=== PATIENT | male | born 1940 | race Caucasian/White ===

== ENCOUNTER → 2016-06-05 | Outpatient (REF) | payer OTHER | LOC: M LAB REF 12:46 | PROVIDERS: ATTEND Internal Medicine Medical Oncology | DX: C61 Malignant neoplasm of prostate (principal) ==

== ENCOUNTER 2016-07-03 14:44 | Day surgery (SDC) | payer MEDICARE, OTHER ==
[~2016-07-03] VITALS: Ht 170.2 cm; Wt 109.4 kg
[~2016-07-03 14:44] MED LIST: CALC500T49 PO; CASO1TAB PO; CYAN1000VL IM; FOLI1TAB2 PO; LEUP375KIT IM
[2016-07-03] MEDS ORDERED: LR 1,000 ML IV ONE (15:30)
[2016-07-03] MEDS ORDERED: LR 1,000 ML IV SCH ×2 (15:30→23:45)
[2016-07-03] MEDS ORDERED: BICALUTAMIDE 50 MG TAB PO SCH (21:00)
[2016-07-03] MEDS ORDERED: BUPIVACAINE HCL 0.25% 30 ML VIAL As Ordered ONE (21:07)
[2016-07-03] MEDS ORDERED: BUPIVACAINE LIPOSOME/PF 1.3% 20 ML VIAL (13.3MG/ML)(EXPAREL) As Ordered ONE (21:07)
[2016-07-03] MEDS ORDERED: MIDAZOLAM INJ 2 MG/2 ML VIAL (J2250) As Ordered ONE (21:40)
[2016-07-03] MEDS ORDERED: PHENYLephrine HCL 500 MCG/5 ML (100MCG/ML) SYRINGE (J2370) As Ordered ONE (21:40)
[2016-07-03] MEDS ORDERED: fentaNYL 250 MCG/5 ML INJECTION (J3010) As Ordered ONE (21:40)
[2016-07-03] MEDS ORDERED: ONDANSETRON 4MG/2ML VIAL (J2405) As Ordered ONE (21:41)
[2016-07-03] MEDS ORDERED: PROPOFOL 200 MG/20 ML VIAL As Ordered ONE (21:41)
[2016-07-03] MEDS ORDERED: ROCURONIUM BROMIDE 50 MG/5 ML VIAL As Ordered ONE ×2 (21:41→22:21)
[2016-07-03] MEDS ORDERED: METOCLOPRAMIDE INJ 10MG/2ML VIAL (J2765) As Ordered ONE (21:41)
[2016-07-03] MEDS ORDERED: LIDOCAINE 2% INJ 100 MG/5 ML SDV (FOR ANES.) As Ordered ONE (21:41)
[2016-07-03] MEDS ORDERED: diphenhydrAMINE INJ 50MG/ML VIAL (J1200) As Ordered ONE (21:41)
[2016-07-03] MEDS ORDERED: GLYCOPYRROLATE INJ 0.2 MG/ML 2 ML VIAL As Ordered ONE (21:42)
[2016-07-03] MEDS ORDERED: NEOSTIGMINE 1MG/ML 5 ML SYRINGE (J2710) As Ordered ONE (21:42)
[2016-07-03] MEDS ORDERED: ePHEDrine SULFATE 25 MG/5 ML(5MG/ML) SYRINGE As Ordered ONE ×2 (21:48→22:07)
[2016-07-03] MEDS ORDERED: DESFLURANE 240 ML INHALANT As Ordered ONE (21:56)
[2016-07-03] MEDS ORDERED: PERCOCET 5MG/325MG TAB PO PRN (23:45)
[2016-07-03] MEDS ORDERED: METOCLOPRAMIDE INJ 10MG/2ML VIAL (J2765) IV PRN (23:45)
[2016-07-03] MEDS ORDERED: fentaNYL 100 MCG/2 ML INJECTION (J3010) IV PRN (23:45)
[2016-07-03] MEDS ORDERED: ONDANSETRON 4MG/2ML VIAL (J2405) IV PRN (23:45)
[2016-07-03] MEDS ORDERED: MEPERIDINE INJ 25 MG/ML VIAL (J2175) IV PRN (23:45)
[2016-07-04] VITALS (9 sets, daily range): BP systolic 106–141; BP diastolic 55–75
[2016-07-04] MEDS ORDERED: LR 1,000 ML IV SCH (00:30)
[2016-07-04] MEDS ORDERED: NORCO, ANEXSIA 5/325MG TABLET (HYDROcodone/ACETAMINOPHEN) PO PRN ×2 (00:30)
[2016-07-04] MEDS ORDERED: ACETAMINOPHEN TAB 650MG DOSE (2X325MG) PO PRN (00:30)
[2016-07-04] MEDS ORDERED: FOLIC ACID 1 MG TAB PO SCH (09:00)
[2016-07-04] MEDS ORDERED: NORC1TAB4 PO (17:06)
[2016-07-04] MEDS ORDERED: TYLE325C PO (17:06)
--- NOTE | 2016-07-05 18:04 | ECGEPIP ---
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
--- NOTE | 2016-07-06 15:15 | RO ---
DATE OF PROCEDURE: 07/03/2016 PREOPERATIVE DIAGNOSIS: Umbilical hernia. POSTOPERATIVE DIAGNOSIS: Umbilical hernia. PROCEDURE PERFORMED: Umbilical herniorrhaphy with Ultra Pro mesh. SURGEON: Dr. Powers PRIEST: Terry Husain MS III ANESTHESIA: General. INDICATIONS FOR PROCEDURE: The patient is a 75-year-old man who had noticed a small bulge just above the umbilicus. He is now for umbilical herniorrhaphy. OPERATIVE PROCEDURE: The patient was placed under general endotracheal anesthesia. The patient's abdomen was prepped and draped in a sterile fashion. 0.25% Marcaine was infiltrated across the upper aspect of the umbilicus. A transverse, roughly 3.5 cm skin incision was made just above the umbilical dimple. The incision was deepened into the subcutaneous tissues. A protrusion of fibrofatty tissue from the fascia was identified just to the left of the midpoint of the incision. Dissection was carried out down to the fascia. The hernia appeared to have been somewhat bilobed with the lower portion having been reduced at the start of the operation and this larger protrusion of fibrofatty tissue remaining incarcerated. This was transected just above the fascia and hemostasis was ensured and this was then reduced into the abdomen. When the two defects were combined, there was an approximately 2 cm round defect with slightly thinned fascial margins superiorly and inferiorly. Laterally, the fascia appeared more robust. I closed the peritoneum with a running suture of chromic. The preperitoneal fat and peritoneum were then peeled away from the overlying fascia surrounding the incision for several centimeters in all directions. I elected to place a small piece of mesh subfascially through the hernia defect to reinforce the closure of the fascial defect. A piece of Ultra Pro mesh was selected and a piece of mesh approximately 3.5 x 5 cm was cut. This was placed subfascially after four corner tacking sutures of #2-0 Ethibond were placed. These were tied holding the mesh splayed beneath the fascial defect. Two lateral sutures of Vicryl were placed to tack the lateral aspects of the mesh in place. The fascial defect was then closed transversely with interrupted simple sutures of #0 Ethibond. Some 0.25% Marcaine was infiltrated about the repair. The umbilical skin was tacked down to the fascia with a single suture of #3-0 Vicryl. The skin edges were then approximated with buried Vicryl and closed with a running suture of #4-0 Vicryl and Steri-Strips. The umbilicus was filled with a fluffed 2 x 2 and covered with a 4 x 4. The patient tolerated the procedure well without apparent complication. He was awakened in the operating room, extubated and moved to the recovery room in stable condition.
== END 2016-07-04 17:19 | disposition home or self-care (01) ==
LOC: M SDC 14:44 → M MSPAV 07-04 00:19 → M SDC 07-04 17:19
PROVIDERS: ATTEND Surgery
DX: K42.9 Umbilical hernia without obstruction or gangrene (principal); C61 Malignant neoplasm of prostate; Z77.098 Contact with and (suspected) exposure to other hazardous, chiefly nonmedicinal, chemicals; Z79.899 Other long term (current) drug therapy; Z92.21 Personal history of antineoplastic chemotherapy; Z92.3 Personal history of irradiation
CPT/HCPCS: 49585; 88302; 93005; C1781; J1200; J2250; J2370; J2405; J2710; J2765; J3010

== ENCOUNTER → 2016-09-25 | Outpatient (REF) | payer OTHER ==
[~2016-09-25] MED LIST changes: -FOLI1TAB2 PO; +FOLI1TAB4 PO; +NORC1TAB4 PO; +TYLE325C PO
[2016-09-25 14:41] LABS: VITAMIN B12 LEVEL 376 PG/ML (247-911)
== END ==
LOC: M LAB REF 13:50
PROVIDERS: ATTEND Internal Medicine Medical Oncology
DX: C61 Malignant neoplasm of prostate (principal)

== ENCOUNTER → 2017-01-29 | Outpatient (REF) | payer OTHER ==
[2017-01-29 13:36] LABS: VITAMIN B12 LEVEL 609 PG/ML (247-911)
== END ==
LOC: M LAB REF 12:48
PROVIDERS: ATTEND Internal Medicine Medical Oncology
DX: C61 Malignant neoplasm of prostate (principal)

== ENCOUNTER → 2017-06-19 | Outpatient (CLI) | payer OTHER | LOC: M WUC 10:10 | DX: R10.31 Right lower quadrant pain (principal) ==

== ENCOUNTER → 2017-09-25 | Outpatient (REF) | payer OTHER ==
[2017-09-25 13:55] LABS: PROSTATIC SPECIFIC AG MONITOR < 0.01 NG/ML (< 4.0)
[2017-09-25 14:37] LABS: VITAMIN B12 LEVEL 620 PG/ML (247-911)
== END ==
LOC: M LAB REF 13:13
DX: C61 Malignant neoplasm of prostate (principal); Z79.818 Long term (current) use of other agents affecting estrogen receptors and estrogen levels

== ENCOUNTER → 2018-10-07 | Outpatient (CLI) | payer OTHER ==
[~2018-10-07] MED LIST changes: +CALC1TAB82 PO; -CASO1TAB PO; +CASO50TA5 PO; +FOLI1TAB11 PO; -FOLI1TAB4 PO; +MOTR200T44 PO; -NORC1TAB4 PO; +NORC1TAB7 PO
--- NOTE | 2018-10-07 15:27 | REP ---
WHOLE BODY BONE SCAN: Following the intravenous administration of 21.7 millicuries technetium 99m MDP, patient's whole body is imaged in the anterior and posterior projections. Additional oblique and lateral views are also obtained. There is a focus of increased uptake in the posterolateral right 9th rib and another focus of increased uptake in the adjacent posterolateral right 10th rib. Differential diagnosis is to include rib fractures or metastatic lesions. There is intense increased uptake in the region of the left hip joint. This could represent arthritic uptake. However, underlying bone lesion cannot be completely excluded. Symmetrical periarticular uptake in the shoulders is compatible with arthritic uptake. There is arthritic uptake in the left talocalcaneal joint and right patellofemoral joint. Mild facet arthritic uptake is seen in the lumbar spine region and there also appears to be mild arthritic uptake in the sacroiliac joints. Renal and bladder activity are seen. IMPRESSION: There is a focus of increased uptake in the posterolateral right 9th rib and adjacent 10th rib. This could represent two adjacent rib fractures but metastatic lesions could not totally be excluded. There is intense increased uptake in the region of the left hip joint, which may represent significant arthritic uptake. However, underlying bone lesion cannot be excluded. Evaluation of the right rib foci and left hip focus would likely best be made with CT scan of these areas. Otherwise, there is no compelling scintigraphic evidence of osseous metastases elsewhere in the axial or appendicular skeleton. Electronically Signed by Renzo Mayer MD 10/08/2018 10:52 A
== END ==
LOC: M RAD 09:24
PROVIDERS: ATTEND Nurse Practitioner Family
DX: C61 Malignant neoplasm of prostate (principal)
CPT/HCPCS: 78306; A9503

== ENCOUNTER → 2018-10-21 | Outpatient (CLI) | payer MEDICARE, OTHER ==
--- NOTE | 2018-10-29 11:11 | DEXA ---
AP SPINE L1 - L4 1.152 -0.3 0.0 LT FEMUR TOTAL 0.857 -1.2 -0.7 LT NECK 0.839 -1.4 -0.3 RT FEMUR TOTAL 0.835 -1.4 -0.8 RT NECK 0.712 -2.3 -1.3 TOTAL BODY TOTAL OTHER COMMENTS: Normal bone densitometry of the spine. There is low bone density of the hips. The increased density of the spine does represent a significant change. The decreased density of the left hip does represent a significant change. The decreased density of the right hip does represent a significant change. The density of the spine has increased 2.3% since the initial exam on 07/01/2007. The spine density has increased 2.2% since the most recent exam on 06/12/2012. The density of the left hip has decreased 5.2% since the initial exam on 07/01/2007. The density of the left hip has decreased 6.1% since the most recent exam on 06/12/2012. The density of the right hip has decreased 14.0% since the initial exam on 07/01/2007. The density of the right hip has decreased 8.2% since the most recent exam on 06/12/2012. FOLLOW-UP: Recommendation for the next bone density exam: 2 years. BOB
== END ==
LOC: M WHC 07:34
PROVIDERS: ATTEND Nurse Practitioner Family
DX: C61 Malignant neoplasm of prostate (principal)

== ENCOUNTER → 2018-10-31 | Outpatient (CLI) | payer OTHER ==
[~2018-10-31] MED LIST changes: +LUPR22.5 IM; +PERC5TAB12 PO; +PROHANCE 279.3MG/ML 15ML VIAL (A9576) As Ordered ONE; +PROHANCE 279.3MG/ML 5ML VIAL (A9576) As Ordered ONE; +XARE10TA PO
--- NOTE | 2018-10-31 16:27 | REP ---
MRI left hip without contrast: History: Intense left hip pain. Uptake on bone scan in the left hip. History of prostate cancer. Technique: A single coronal T1-weighted sequences acquired before the patient became too claustrophobic to continue. The scan is incomplete as a result. Findings: The T1-weighted sequence images acquired in the coronal plane before claustrophobia prevented continuing show severe osteoarthritis of the left hip with subcortical cyst formation extensively noted on both sides of the hip articulation superiorly. There is well established marginal osteophyte formation at the inferior aspect of the hip. This constellation of findings is consistent with osteoarthritis. There is no evidence to suggest metastatic lesion on these limited images. There are mild osteoarthritic changes on the right. Electronically Signed by Kevin Gaffney MD 10/31/2018 04:30 P
== END ==
LOC: M RAD 13:12
PROVIDERS: ATTEND Nurse Practitioner Family
DX: M25.552 Pain in left hip (principal); C61 Malignant neoplasm of prostate

== ENCOUNTER → 2018-12-25 | Outpatient (REF) | payer MEDICARE, OTHER ==
[~2018-12-25] MED LIST changes: -LUPR22.5 IM; -PERC5TAB12 PO; -PROHANCE 279.3MG/ML 15ML VIAL (A9576) As Ordered ONE; -PROHANCE 279.3MG/ML 5ML VIAL (A9576) As Ordered ONE; -XARE10TA PO
[2018-12-25 11:07] LABS: BASO # 0.1 10^3/uL (0.0-0.2); BASO % 0.6 % (0.0-1.0); EOS # 0.5 10^3/uL (0.0-0.5); EOS % 6.2 % (0.0-3.0); HEMATOCRIT 44.2 % (42.0-52.0); HEMOGLOBIN 14.2 g/dl (13.5-17.5); LYMPH # 1.3 10^3/uL (1.5-5.0); LYMPH % 14.6 % (24.0-44.0); MEAN CORPUSCULAR HEMOGLOBIN 31.4 pg (27.0-33.0); MEAN CORPUSCULAR HGB CONC 32.1 g/dl (32.0-36.5); MEAN CORPUSCULAR VOLUME 97.8 fl (80.0-96.0); MONO # 0.7 10^3/uL (0.0-0.8); MONO % 8.5 % (0.0-5.0); NEUTROPHILS % 69.8 % (36.0-66.0); PLATELET COUNT, AUTOMATED 268 10^3/uL (150-450); RED BLOOD COUNT 4.52 10^6/uL (4.30-6.10); WHITE BLOOD COUNT 8.6 10^3/uL (4.0-10.0)
[2018-12-25 11:20] LABS: INR 1.05; PROTHROMBIN TIME 13.4 SECONDS (11.8-14.0)
[2018-12-25 11:21] LABS: PARTIAL THROMBOPLASTIN TIME 32.6 SECONDS (25.0-38.4)
[2018-12-25 12:19] LABS: ALBUMIN 3.8 GM/DL (3.2-5.2); ALT/SGPT 30 U/L (12-78); BILIRUBIN,TOTAL 0.8 MG/DL (0.2-1.0); BLOOD UREA NITROGEN 15 MG/DL (7-18); CALCIUM LEVEL 9.3 MG/DL (8.8-10.2); CARBON DIOXIDE LEVEL 28 MEQ/L (21-32); CHLORIDE LEVEL 108 MEQ/L (98-107); CHOLESTEROL LEVEL 175 MG/DL (<200); CHOLESTEROL RISK RATIO 3.723 (<5); CREATININE FOR GFR 0.74 MG/DL (0.70-1.30); FREE T4 0.83 NG/DL (0.76-1.46); GLOMERULAR FILTRATION RATE > 60.0 (>42); GLUCOSE, FASTING 84 MG/DL (70-100); HDL CHOLESTEROL 47 MG/DL (>40); LDL CHOLESTEROL 113 MG/DL (<100); NON-HDL-C 128 MG/DL; POTASSIUM SERUM 4.7 MEQ/L (3.5-5.1); SODIUM LEVEL 141 MEQ/L (136-145); TOTAL PROTEIN 6.9 GM/DL (6.4-8.2); TRIGLYCERIDES LEVEL 77 MG/DL (<150)
[2018-12-25 13:37] LABS: HEMOGLOBIN A1c 5.4 %
== END ==
LOC: M SFHCPLAZ 08:19
PROVIDERS: ATTEND Nurse Practitioner Family
DX: Z13.228 Encounter for screening for other metabolic disorders (principal); Z13.6 Encounter for screening for cardiovascular disorders; E07.9 Disorder of thyroid, unspecified; Z79.01 Long term (current) use of anticoagulants

== ENCOUNTER → 2018-12-30 | Outpatient (CLI) | payer MEDICARE, OTHER ==
[~2018-12-30] MED LIST changes: +LUPR22.5 IM; +PERC5TAB12 PO; +XARE10TA PO
--- NOTE | 2018-12-30 15:02 | REP ---
Clinical: Preoperative assessment . Comparison: 12/09/2008 . Technique: PA and lateral. Findings: The mediastinum and cardiac silhouette are normal. The lung peacock demonstrate chronic-appearing changes and evidence for emphysematous disease without acute consolidation, effusion, or pneumothorax. The skeletal structures are intact and normal. Impression: 1. No acute cardiopulmonary process. Electronically Signed by Jose Johnston MD 12/30/2018 02:54 P
== END ==
LOC: M WUC 14:27
PROVIDERS: ATTEND Family Medicine
DX: Z01.818 Encounter for other preprocedural examination (principal); M16.12 Unilateral primary osteoarthritis, left hip

== ENCOUNTER 2019-01-09 07:09 | Inpatient (IN) | payer MEDICARE, OTHER ==
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
[2019-01-09] VITALS (7 sets, daily range): BP systolic 106–120; BP diastolic 65–78
[~2019-01-09] VITALS: Ht 170.2 cm; Wt 109.6 kg
[~2019-01-09 07:09] MED LIST changes: +ACETAMINOPHEN 500 MG TAB PO ONE; +LR 1,000 ML IV ONE; -LUPR22.5 IM; -PERC5TAB12 PO; -XARE10TA PO; +ceFAZolin SOD 2 GM in IV 1 EA IV ONE
[2019-01-09] MEDS ORDERED: LUPR22.5 IM (08:16)
[2019-01-09] MEDS ORDERED: PROPOFOL 200 MG/20 ML VIAL As Ordered ONE ×3 (09:24→12:10)
[2019-01-09] MEDS ORDERED: LIDOCAINE 2% INJ 100 MG/5 ML SDV (FOR ANES.) As Ordered ONE (09:24)
[2019-01-09] MEDS ORDERED: ceFAZolin 1GM INJ (J0690 PER 500MG) As Ordered ONE (10:21)
[2019-01-09] MEDS ORDERED: EPINEPHrine INJ 1 MG/ML 1ML AMP As Ordered ONE (10:21)
[2019-01-09] MEDS ORDERED: MIDAZOLAM INJ 2 MG/2 ML VIAL (J2250) As Ordered ONE (10:24)
[2019-01-09] MEDS ORDERED: ePHEDrine SULFATE 25 MG/5 ML(5MG/ML) SYRINGE As Ordered ONE (11:08)
[2019-01-09] MEDS ORDERED: PHENYLephrine HCL 500 MCG/5 ML (100MCG/ML) SYRINGE (J2370) As Ordered ONE (11:32)
[2019-01-09] MEDS ORDERED: PERCOCET 5MG/325MG TAB As Ordered ONE (13:06)
[2019-01-09] MEDS ORDERED: MORPHINE 4 MG/ML 1ML VIAL/SYRINGE (J2270) IV PRN ×2 (13:45)
[2019-01-09] MEDS ORDERED: FLEET ENEMA PR PRN (13:45)
[2019-01-09] MEDS ORDERED: fentaNYL 100 MCG/2 ML INJECTION (J3010) IV PRN (13:45)
[2019-01-09] MEDS ORDERED: ACETAMINOPHEN TAB 650MG DOSE (2X325MG) PO PRN (13:45)
[2019-01-09] MEDS ORDERED: LR 1,000 ML IV SCH ×2 (13:45)
[2019-01-09] MEDS ORDERED: ONDANSETRON 4MG/2ML VIAL (J2405) IV PRN ×2 (13:45→14:00)
[2019-01-09] MEDS ORDERED: PERCOCET 5MG/325MG TAB PO PRN ×2 (13:45)
[2019-01-09] MEDS ORDERED: MORPHINE 10 MG/ML 1ML VIAL (J2270) IV PRN (13:45)
--- NOTE | 2019-01-09 13:53 | REP ---
Left hip two views postoperative study: There is a total hip arthroplasty. The components are tightly applied and in satisfactory positions alignment. There are skin sony. There are surgical homeostasis clips in the pelvis. Electronically Signed by Renzo Granado MD 01/09/2019 01:44 P
--- NOTE | 2019-01-09 15:00 | CR.PDOC ---
General Date of Consultation: Jan 09, 2019 Referring Provider: CLARISA PEARCE PA-C Primary Care Physician: GINETTE LEGGETT MD Attending Physician: IQRA DANIELS MD Consultation REASON FOR CONSULTATION/CHIEF COMPLAINT: Medical management HISTORY OF PRESENT ILLNESS: Patient is a 78-year, status post left total hip arthroplasty, this afternoon, by Orthopedic surgery. Hospitalist team was consulted for medical management. Patient has a past medical history of left hip osteoarthritis, prostate cancer, and osteopenia on right hip. Patient received outpatient medical clearance from her primary care provider, Dr. Ginette Leggett. Patient was evaluated following surgery. He was still recovering from aftereffects of anesthesia, was able to answer questions appropriately, although somewhat groggy. Denied chest pain, denied shortness of breath denied any breathing difficulty. Patient does not experience any nausea, vomiting, diarrhea or any fevers or chills. Over last 2 weeks. ALLERGIES: Please see below. HOME MEDICATIONS: Please see below. PAST MEDICAL HISTORY: Left hip osteoarthritis, prostate cancer, osteopenia of the right hip PAST SURGICAL HISTORY: Status post left hip arthroplasty, prostatectomy, appendectomy, hernia repair FAMILY HISTORY: Positive for family history of cancer SOCIAL HISTORY: Former smoker, quit 52 years ago, occasionally drinks alcohol, no illicit drug use REVIEW OF SYSTEMS: CONSTITUTIONAL: No fevers, denies chills, denies weight loss, denies lethargy HEENT: No rhinorrhea, no itchy eyes, no congestion, CARDIOVASCULAR: No murmurs no palpitations and arrhythmias RESPIRATORY: Not cough, No SOB, no issues to report GASTROINTESTINAL: No nausea, no vomiting, no difficulty swallowing, no pain with eating, no diarrhea HEMATOLOGICAL: No bleeding HEMATOLOGIC/LYMPHATIC: No swelling 10 point review systems complete, all negative otherwise stated in HPI/above PHYSICAL EXAMINATION: VITAL SIGNS: Please see below. GENERAL APPEARANCE: Alert no acute distress, Elderly gentleman, recovering from surgical anesthesia SKIN: Warm, well perfused. LUNGS: Clear to auscultation bilaterally, without evidence of rhonchi / rales / wheezing HEART: Normal S1, S2. No murmurs, no rubs, no gallops ABDOMEN: Soft. No masses. Bowel sounds are present. TRUNK/SPINE:Straight. EXTREMITIES: Restricted movement of left hip due to pain, surgical scars on patient's left hip, dressing in place, no bleeding PULSES: 2+ upper and lower extremity . LABORATORY DATA: Please see below. ASSESSMENT/PLAN: Patient is a 78-year, status post left total hip arthroplasty by Dr. Bobby Torres. With a past medical history significant for osteoarthritis of left hip, right hip, osteopenia, and prostate cancer. Hospitalist team was consulted for medical management following procedure #Status post left hip arthroplasty, secondary to left hip osteoarthritis (POD#0) - Pain management, physical therapy and anticoagulation at the direction of Orthopedic surgery -Will monitor clinically for postoperative fevers -Will trend CBC, as well as hemoglobin and hematocrit #Prostate cancer -C/w Bicalutamide -Lupron Depot [id number] -Will follow-up outpatient #DVT prophylaxis -TEDs sequential Vital Signs/I&O Vital Signs Date Time Temp Pulse Resp B/P (MAP) Pulse Ox O2 Delivery O2 Flow Rate FiO2 01/09/19 13:45 97 54 18 98/60 (73) 100 Room Air Allergies Coded Allergies: No Known Allergies (Unverified , 05/29/18) Home Medications Scheduled Bicalutamide (Casodex) 50 Mg Tab, 50 MG PO DAILY for 30 Days, #30 Calcium Carbonate/Vitamin D3 (Calcium 600-Vit D3 400 Tablet) 1 Tab Tab, 1 TAB PO BID for 30 Days, #60 (Reported) Cyanocobalamin (Cyanocobalamin Injection) 1,000 Mcg/1 Ml Vial, 1 ML IM Q30D for 30 Days, #1 Folic Acid (Folic Acid) 1 Mg Tab, 1 MG PO DAILY, #180 Leuprolide Acetate (Lupron Depot) 22.5 Mg Syringekit, 1 SYRINGE IM [id number] for 30 Days, (Reported) GME ATTESTATION GME ATTESTATION My faculty preceptor for this patient encounter was physically present during the encounter and was fully available. All aspects of the patient interview, examination, medical decision making process, and medical care plan development were reviewed and approved by the faculty preceptor. The faculty preceptor is aware and concurs with the plan as stated in the body of this note and will atte st to such by his/her cosignature. ATTENDING NOTE I, Iqra Daniels, have independently examined this patient and performed my own physical exam, as well as reviewed the documentation and edited where necessary. I have discussed in detail with the resident / student the findings and plan of treatment as documented by the resident / student and edited their note. I agree with their findings and treatment plan and have edited their documentation. I will continue to follow the patient during this hospital stay. THEO CASON DO Jan 09, 2019 14:59 IQRA DANIELS MD Jan 09, 2019 15:46
[2019-01-09] MEDS: PERCOCET 5MG/325MG TAB PO PRN ×2 (16:20→20:24)
--- NOTE | 2019-01-09 16:50 | RO ---
DATE OF PROCEDURE: 01/09/2019 PREPROCEDURE DIAGNOSIS: Left hip degenerative arthritis. POSTPROCEDURE DIAGNOSIS: Left hip degenerative arthritis. OPERATIVE PROCEDURE: Left total hip arthroplasty using a size 56 Gription cup with a 40 mm neutral polyethylene liner and a #8 [place] standard offset stem with a +5 neck and a 40 mm Sturkie Chrome steel ball. SURGEON: Francy White MD BUILDING CONSULTANT: DAMIAN Stringer ANESTHESIA: Spinal. COMPLICATIONS: None. SPECIMENS: Femoral head. ESTIMATED BLOOD LOSS: 200 mL. DESCRIPTION OF PROCEDURE: Antibiotics given intravenously preoperatively and successful spinal anesthetic was induced and he was placed in lateral decubitus position, left hip upper most. He was positioned on the [place] hip positioner, down leg well-padded, especially the peroneal nerve. An axillary roll was utilized. His left hip area was then carefully prepped and draped in the usual sterile fashion. Then after an appropriate time out, a longitudinal incision was made for an anterolateral approach to the hip. Bovie cautery was used to coagulate the crossing vessels down to the tensor fascia which was then divided in line with the skin incision. We then split the gluteus medius anterior one-third posterior two-third junction and carefully dissected down through the gluteus minimus and anterior hip capsule and carefully dissected off the anterior part of the femur as we eventually were able to dislocate the hip anteriorly and place the leg in a leg bag with assistance of Mr. Brambila. The piriformis fossa was identified, starter reamer utilized followed by the canal finding reamer, then the lateralizing reamer, then we reamed up to a size 8 reamer. Femoral neck osteotomy performed using the template as a guide, then we began broaching to a size 8. Calcar planer utilized. We then exposed the acetabulum, performed a labral incision 360 degrees and then began reaming beginning at 50 mm and advanced up to 55. The trial 56 fit very nicely. There was a large anterior osteophyte noted. We thus elected to use the 50 cup, was impacted after debriding some subchondral cysts that were in the acetabulum using a small angled curette. The central hole eliminator was placed followed by the polyethylene. We made sure it was seated properly and then we exposed the proximal femur, copiously irrigated, placed the #8 broach once again, then trialed with a 1.5 neck with a 40 mm ball. He had excellent cup position and stability with the flexion internal rotation and extension external rotation, but there as a little bit of excess telescoping thus the +5 was trialed and that improved that such that I thought that was appropriate soft tissue tension. We removed the broach and then copiously irrigated. Placed the real #8 stem, then dried the trunion, then placed the +5 x 40 mm Sturkie Chrome ball and then reduced the hip. We copiously irrigated then closed the anterior hip capsule and the gluteus minimus back anatomically with interrupted #1 PDS sutures. Gluteus medius was closed back anatomically with #1 PDS sutures, irrigated between layers, closed the tensor fascia with combination of #1 PDS sutures in a running #1 Stratafix. Irrigated between layers, closed the deep subdermal tissues with interrupted #2-0 PDS sutures, skin was closed with sony, covered by an Optifoam dry sterile bulky dressing. He was then turned supine and transferred to the recovery room in stable condition. There were no intraoperative complications. Please note Mr. Davalosan Patty was critical to the success of this difficult operation. This is a very obese male who is very short and felton and needed assistance with appropriate soft tissue retraction, helping to reduce and dislocate the hip several times throughout the operation, helped with closure of the wound, helped to position the patient along side many other tasks to allow me to perform the operation smoothly, efficiency, and safely.
[2019-01-09] MEDS: ceFAZolin SOD 2 GM in IV 1 EA IV SCH ×2 (17:47→23:07)
[2019-01-09] MEDS: FOLIC ACID 1 MG TAB PO SCH (17:48)
[2019-01-09] MEDS ORDERED: BICALUTAMIDE 50 MG TAB PO SCH (18:00)
[2019-01-10 01:08] VITALS: BP 115/71
[2019-01-10] MEDS: ceFAZolin SOD 2 GM in IV 1 EA IV SCH (05:02)
[2019-01-10] MEDS: PERCOCET 5MG/325MG TAB PO PRN ×2 (05:11→09:28)
[2019-01-10] MEDS ORDERED: XARE10TA PO (06:24)
[2019-01-10] MEDS ORDERED: PERC5TAB12 PO (06:24)
[2019-01-10 06:46] VITALS: BP 121/73
[2019-01-10 06:55] LABS: HEMATOCRIT 35.8 % (42.0-52.0); HEMOGLOBIN 11.7 g/dl (13.5-17.5); MEAN CORPUSCULAR HGB CONC 32.7 g/dl (32.0-36.5); MEAN CORPUSCULAR VOLUME 97.8 fl (80.0-96.0); PLATELET COUNT, AUTOMATED 231 10^3/uL (150-450); RED BLOOD COUNT 3.66 10^6/uL (4.30-6.10); WHITE BLOOD COUNT 13.2 10^3/uL (4.0-10.0)
[2019-01-10 07:21] LABS: ALBUMIN 3.2 GM/DL (3.2-5.2); ALT/SGPT 28 U/L (12-78); BLOOD UREA NITROGEN 14 MG/DL (7-18); CALCIUM LEVEL 8.7 MG/DL (8.8-10.2); CARBON DIOXIDE LEVEL 28 MEQ/L (21-32); CHLORIDE LEVEL 106 MEQ/L (98-107); CREATININE FOR GFR 0.83 MG/DL (0.70-1.30); GLOMERULAR FILTRATION RATE > 60.0 (>42); GLUCOSE, FASTING 122 MG/DL (70-100); POTASSIUM SERUM 4.5 MEQ/L (3.5-5.1); SODIUM LEVEL 137 MEQ/L (136-145); TOTAL PROTEIN 6.5 GM/DL (6.4-8.2)
[2019-01-10 07:59] LABS: INR 1.24; PROTHROMBIN TIME 15.3 SECONDS (11.8-14.0)
[2019-01-10] MEDS ORDERED: MIRALAX *UNIT DOSE* 17GM PACKET PO SCH (09:00)
[2019-01-10] MEDS ORDERED: MOM 30ML SUSPENSION UDC PO SCH (09:00)
[2019-01-10] MEDS: FOLIC ACID 1 MG TAB PO SCH (09:29)
--- NOTE | 2019-01-10 11:37 | IPNPDOC ---
Text Note Date of Service The patient was seen on 01/10/19. NOTE Subjective: Patient is a 78-year male with a PMhx of prostate cancer s/p surgery and is currently on hormonal therapy who presented to [facility] for an elective orthopedic procedure. Patient received outpatient medical clearance from his primary care provider, Dr. Desmond Leggett. . Hospitalist service was consultation for medical evaluation and management. Patient was seen and examined at the bedside. . Currently, patient reports that he has had an uneventful evening and has had 2 bowel movements since the procedure. He has been working with physical therapy. Denies chest pain, short of breath or palpitations. Has not as nausea, vomiting or abdominal pain. Patient has cleared physical therapy today and will be discharged home. Objective: Vitals (See below) General: Lying in bed, no acute distress, comfortable, AAOx3 HEENT: NC, AT CVS: RRR, +S1S2 Lungs: Fair air entry b/l, -w/r/r Abdomen: Soft, ND, NT Extremities: - Edema, - Calf tenderness, Left hip with dressing in place Assessment and plan: Status post total left hip arthroplasty - 2/2 left hip osteoarthritis (POD#1) - Patient has received outpatient medical clearance from his primary care provider, Dr. Ginette Leggett - Pain control and regulation physical therapy at the direction of orthopedic surgery - Patient has cleared PT and will be discharged home with outpatient follow up with orthopedic surgery Prostate cancer - c/w Bicalutamide and Lupron - Will have outpatient follow up with PCP DVT prophylaxis - As per orthopedic surgery VS,Fishbone, I+O VS, Fishbone, I+O Laboratory Tests 01/10/19 06:28 Vital Signs Date Time Temp Pulse Resp B/P (MAP) Pulse Ox O2 Delivery O2 Flow Rate FiO2 01/10/19 10:27 16 01/10/19 06:46 96.0 75 121/73 (89) 96 Room Air I&O- Last 24 Hours up to 6 AM 01/10/19 05:59 Intake Total 2850 ml Output Total 200 ml Balance 2650 ml SANDY CHANCE MD Jan 10, 2019 11:37
[2019-01-10] MEDS ORDERED: RIVAROXABAN 10 MG TAB (XARELTO) PO SCH (18:00)
--- NOTE | 2019-01-13 18:09 | DSES ---
DATE OF ADMISSION: 01/09/2019 DATE OF DISCHARGE: 01/10/2019 ADMISSION DIAGNOSIS: Osteoarthritis left hip. OTHER DIAGNOSES: 1. History of osteopenia. 2. History of prostate cancer. DISCHARGE DIAGNOSIS: Osteoarthritis left hip status post left total hip arthroplasty. OPERATION PERFORMED: Left total hip arthroplasty. HOSPITAL COURSE: The patient was admitted on day of surgery and underwent a left total hip arthroplasty which uneventful. He did well in the postoperative period. His hospital course was without complications. He was up with physical therapy per their protocol. His pain was controlled. On day of discharge he was doing well, weightbearing as tolerated on his left lower extremity. He will use thromboembolitic deterrents (TEDs) stockings for 30 days postoperative for deep venous thrombosis (DVT) prophylaxis. He will also use Xarelto 10 mg per the protocol for DVT prophylaxis. He will resume his preoperative medications and diet. He was given instructions to include, but not limited to, wound monitoring and activity limitations. He will follow up in our office in 10-14 days for surgical followup. He will use oral pain medications for pain control. Please refer to the medical record further details.
[2019-01-21] MEDS ORDERED: CYANOCOBALAMIN 1,000 MCG/ML VIAL (J3420) IM SCH (09:00)
[2019-02-10] MEDS ORDERED: FOLI1TAB11 PO (15:30)
[2019-02-10] MEDS ORDERED: CASO50TA5 PO (16:20)
== END 2019-01-10 10:55 | disposition home or self-care (01) | DRG 470 ==
LOC: M OR 07:09 → M MS5PR 13:59
PROVIDERS: ADMIT Orthopaedic Surgery; ATTEND Orthopaedic Surgery
PROC: 0SRB02Z Replacement of Left Hip Joint with Metal on Polyethylene Synthetic Substitute, Open Approach (ICD-10-PCS; principal; 2019-01-09 09:35)
DX: M16.12 Unilateral primary osteoarthritis, left hip (principal); M85.851 Other specified disorders of bone density and structure, right thigh; Z79.899 Other long term (current) drug therapy; Z85.46 Personal history of malignant neoplasm of prostate; Z90.49 Acquired absence of other specified parts of digestive tract; Z87.891 Personal history of nicotine dependence; Z90.79 Acquired absence of other genital organ(s)

== ENCOUNTER → 2019-02-05 | Outpatient (REF) | payer OTHER ==
[~2019-02-05] MED LIST changes: -ACETAMINOPHEN 500 MG TAB PO ONE; -LR 1,000 ML IV ONE; +LUPR22.5 IM; +PERC5TAB12 PO; +XARE10TA PO; -ceFAZolin SOD 2 GM in IV 1 EA IV ONE
[2019-02-05 12:28] LABS: BASO # 0.1 10^3/uL (0.0-0.2); BASO % 0.7 % (0.0-1.0); EOS # 0.4 10^3/uL (0.0-0.5); EOS % 5.5 % (0.0-3.0); HEMATOCRIT 38.3 % (42.0-52.0); LYMPH % 14.7 % (24.0-44.0); MEAN CORPUSCULAR HEMOGLOBIN 30.9 pg (27.0-33.0); MEAN CORPUSCULAR HGB CONC 31.3 g/dl (32.0-36.5); MEAN CORPUSCULAR VOLUME 98.7 fl (80.0-96.0); MONO # 0.6 10^3/uL (0.0-0.8); MONO % 8.8 % (0.0-5.0); NEUTROPHILS # 4.9 10^3/uL (1.5-8.5); NEUTROPHILS % 69.9 % (36.0-66.0); PLATELET COUNT, AUTOMATED 337 10^3/uL (150-450); RED BLOOD COUNT 3.88 10^6/uL (4.30-6.10)
[2019-02-05 12:51] LABS: ERYTHROCYTE SEDIMENTATION RATE 35 mm/hr (0-20)
== END ==
LOC: M LABDRAW1 11:54
PROVIDERS: ATTEND Orthopaedic Surgery
DX: Z47.1 Aftercare following joint replacement surgery (principal)

== ENCOUNTER → 2019-11-06 | Outpatient (CLI) | payer OTHER ==
[~2019-11-06] MED LIST changes: +CALC-234 PO; -CALC1TAB82 PO
== END ==
LOC: M LABSMTC 12:24
PROVIDERS: ATTEND Family Medicine
DX: Z11.59 Encounter for screening for other viral diseases (principal)
CPT/HCPCS: C9803; U0003

== ENCOUNTER → 2020-11-02 | Outpatient (CLI) | payer OTHER ==
--- NOTE | 2020-11-02 10:05 | DEXAMM ---
INDICATION: OSTEOPENIA. Left hip replacement. COMPARISON: Comparison study October 21, 2018. TECHNIQUE: Bone density was measured using dual-energy x-ray absorptionmetry (DEXA). FINDINGS: AP SPINE L1-L4 BMD 1.257 g/cm2 Young Adult T-Score 0.5 Age Matched Z-Score 50.9. RT FEMUR, TOTAL BMD 0.807 g/cm2 Young Adult T-Score -1.6 Age Matched Z-Score -0.9. RT NECK BMD 0.687 g/cm2 Young Adult T-Score -2.5 Age Matched Z-Score -1.4. IMPRESSION: There is normal bone density of the spine. There is low bone density of the right hip. The density of the spine has increased 11.6% since the initial exam on July 01, 2007. The density of the spine increased 9.1% since most recent exam on October 21, 2018. The density of the right hip has decreased 16.9% since the initial exam on July 01, 2007. The density of the right hip has decreased 3.4% since the most recent exam on October 21, 2018. FOLLOW-UP: Recommendation for the next bone density exam: 2 years. <Electronically signed by Jeremy Gaffney > 11/02/20 1002
== END ==
LOC: M WHC 08:58
PROVIDERS: ATTEND Internal Medicine Medical Oncology
DX: M81.0 Age-related osteoporosis without current pathological fracture (principal)

== ENCOUNTER → 2022-10-01 | Outpatient (CLI) | payer BC, OTHER ==
[~2022-10-01] MED LIST changes: +ALEN70TA82 PO
== END ==
LOC: M RAD 09:28
PROVIDERS: ATTEND Internal Medicine Hematology & Oncology
DX: Z85.46 Personal history of malignant neoplasm of prostate (principal)
CPT/HCPCS: 78306; A9503

== ENCOUNTER → 2022-10-30 | Outpatient (CLI) | payer BC, OTHER | LOC: M RAD 09:58 | PROVIDERS: ATTEND Internal Medicine Medical Oncology | DX: M81.0 Age-related osteoporosis without current pathological fracture (principal) ==

== ENCOUNTER → 2022-12-13 | Outpatient (CLI) | payer BC, OTHER | LOC: M WHC 12:37 | PROVIDERS: ATTEND Nurse Practitioner | DX: C61 Malignant neoplasm of prostate (principal) ==

== ENCOUNTER 2023-08-30 06:07 | Emergency (ER) | payer BC ==
[~2023-08-30] VITALS: Ht 165.1 cm; Wt 92.8 kg
[2023-08-30 09:14] LABS: BASO % 0.2 % (0.0-1.0); EOS % 0.1 % (0.0-3.0); HEMOGLOBIN 13.6 g/dl (13.5-17.5); LYMPH # 0.7 10^3/uL (1.5-5.0); LYMPH % 3.6 % (24.0-44.0); MEAN CORPUSCULAR HEMOGLOBIN 31.8 pg (27.0-33.0); MEAN CORPUSCULAR HGB CONC 33.2 g/dl (32.0-36.5); MEAN CORPUSCULAR VOLUME 95.8 fl (80.0-96.0); MONO # 1.9 10^3/uL (0.0-0.8); MONO % 9.8 % (2.0-8.0); NEUTROPHILS # 16.5 10^3/uL (1.5-8.5); NEUTROPHILS % 85.5 % (36.0-66.0); PLATELET COUNT, AUTOMATED 209 10^3/uL (150-450); RED BLOOD COUNT 4.28 10^6/uL (4.30-6.10); WHITE BLOOD COUNT 19.3 10^3/uL (4.0-10.0)
[2023-08-30 09:32] LABS: BLOOD UREA NITROGEN 16 MG/DL (9-23); CALCIUM LEVEL 8.6 MG/DL (8.3-10.6); CARBON DIOXIDE LEVEL 26 MMOL/L (20-31); CHLORIDE LEVEL 104 MMOL/L (98-107); CREATININE FOR GFR 0.74 MG/DL (0.70-1.30); GLOMERULAR FILTRATION RATE > 60.0 (>35); GLUCOSE, FASTING 110 MG/DL (74-106); POTASSIUM SERUM 4.2 MMOL/L (3.5-5.1); SODIUM LEVEL 138 MMOL/L (136-145)
[2023-08-30] MEDS ORDERED: ISOVUE-370 76% 100ML VIAL As Ordered ONE (09:50)
[2023-08-30 11:31] VITALS: O2SAT 96
[2023-08-30 11:31] LABS: LIPASE 20 U/L (12-53)
[2023-08-30 11:33] LABS: ALBUMIN 2.9 G/DL (3.2-5.2); ALKALINE PHOSPHATASE 117 U/L (46-116); ALT/SGPT 30 U/L (7.0-40); AST/SGOT 26 U/L (<34); BILIRUBIN,DIRECT 0.9 MG/DL (<0.4); TOTAL PROTEIN 6.1 G/DL (5.7-8.2)
[2023-08-30] MEDS ORDERED: AMOX875T2 PO (11:51)
[2023-08-30 12:05] VITALS: BP 141/76; TEMP 97.3
== END 2023-08-30 12:02 | disposition left against medical advice (07) ==
LOC: M ED 06:07
DX: K81.9 Cholecystitis, unspecified (principal); Z85.46 Personal history of malignant neoplasm of prostate; Z79.2 Long term (current) use of antibiotics; Z79.899 Other long term (current) drug therapy; Z53.9 Procedure and treatment not carried out, unspecified reason
CPT/HCPCS: 36415; 74178; 80048; 80076; 81001; 83690; 85025; 99284; Q9967

== ENCOUNTER → 2024-10-21 | Outpatient (CLI) | payer BC ==
[~2024-10-21] MED LIST changes: +AMOX875T2 PO
== END ==
LOC: M SOG 06:46
PROVIDERS: ATTEND Neuromusculoskeletal Medicine, Sports Medicine
DX: Z53.9 Procedure and treatment not carried out, unspecified reason (principal)

== ENCOUNTER → 2024-12-30 | Outpatient (CLI) | payer BC ==
[~2024-12-30] MED LIST changes: +CYAN100017; +CYAN100017 IM
== END ==
LOC: M WHC 10:51
PROVIDERS: ATTEND Internal Medicine Medical Oncology
DX: M81.0 Age-related osteoporosis without current pathological fracture (principal); M85.80 Other specified disorders of bone density and structure, unspecified site; C61 Malignant neoplasm of prostate